=== PATIENT | male | born 1990 | race African-American/Black ===

== ENCOUNTER 2020-08-29 05:42 | Emergency (ER) | payer BC ==
[~2020-08-29] VITALS: Ht 190.5 cm; Wt 95.3 kg
[~2020-08-29 05:42] MED LIST: IBUPROFEN 800800 MG PO; ONDANSETRON HCL4 M2 PO; TRAMADOL 50 MG50 MG PO
[2020-08-29] MEDS ORDERED: DESCOVY 200-251 EACH PO (05:52)
[2020-08-29 06:27] LABS: ABSOLUTE EOSINOPHILS 0.1 thou/uL (0.0-0.7); ABSOLUTE MONOCYTES 0.2 thou/uL (0.0-1.2); ABSOLUTE NEUTROPHILS 1.2 thou/uL (1.6-8.1); EOSINOPHILS 3.6 %; HEMATOCRIT 46.3 % (42.0-52.0); HEMOGLOBIN 15.4 gm/dL (14.0-18.0); LYMPHOCYTES 55.9 %; MCH 29.8 pg (26.0-34.0); MCHC 33.4 g/dL (28.0-37.0); MCV 89.3 fL (80.0-100.0); MONOCYTES 5.5 %; MPV 9.4 fl. (7.2-11.1); NUCLEATED RBCS 0 /100WBC; PLATELET COUNT* 200 thou/uL (150-400); RBC 5.18 mil/uL (4.50-6.00); RDW-CV 13.7 % (10.5-14.5); WBC 3.5 thou/uL (4.0-11.0)
[2020-08-29 06:39] LABS: APTT 25.6 Seconds (25.0-31.3); PROTIME 10.4 Seconds (9.20-11.50)
[2020-08-29 06:42] LABS: CALCIUM 9.5 mg/dL (8.5-10.1); CREATININE 1.1 mg/dL (0.6-1.3)
[2020-08-29 06:47] LABS: ALBUMIN 3.5 g/dL (3.4-5.0); TOTAL BILIRUBIN 0.5 mg/dL (<0.1-1.0); TOTAL PROTEIN 7.5 g/dL (6.4-8.2)
[2020-08-29 07:59] VITALS: BP 114/64
--- NOTE | 2020-08-29 10:17 | EKG ---
[place] [address] ELECTROCARDIOGRAM REPORT Name: AKOSUA ALTAMIRANO Room: [facility]#: [id number] Admission: 08/29/20 Attend Phys: Discharge: 08/29/20 Date of : [birth year] Date of Service: 08/29/20628 Report #: [id number] THIS REPORT FOR: //name// [facility] ED Test Date: 2020-08-29 Test Time: 06:29:52 Pat Name: AKOSUA ALTAMIRANO Department: Room: Gender: A Operator: : 1990 Requested By: Yesy Schultz Order Number: [id number] MD: Mc Albert Measurements Intervals [place] Rate: 71 P: 53 IN: 155 QRS: 56 QRSD: 78 T: 36 QT: 349 QTc: 380 Interpretive Statements Sinus rhythm ST elev, probable normal early repol pattern No previous ECG available for comparison Electronically Signed On 08-29-2020 10:17:24 DELI MANAGER by Mc Albert [email or web address] <ELECTRONICALLY SIGNED> By: Mc Albert MD, [facility] 08/29/20 1017 8 8 Mc Albert MD, FACC /EPI
== END 2020-08-29 07:59 | disposition home or self-care (01) ==
LOC: M.ERS 05:42
PROVIDERS: Personal Emergency Response Attendant
DX: S06.0X0A Concussion without loss of consciousness, initial encounter (principal); Z79.899 Other long term (current) drug therapy; Z88.5 Allergy status to narcotic agent; W01.198A Fall on same level from slipping, tripping and stumbling with subsequent striking against other object, initial encounter; Y93.89 Activity, other specified; Y92.89 Other specified places as the place of occurrence of the external cause; Y99.8 Other external cause status

== ENCOUNTER 2020-10-10 13:26 | Emergency (ER) | payer OTHER, BC ==
[~2020-10-10] VITALS: Ht 188 cm; Wt 86.6 kg
[~2020-10-10 13:26] MED LIST changes: +DESCOVY 200-251 EACH PO
[2020-10-10] MEDS ORDERED: ZANAFLEX4 MG PO (15:49)
[2020-10-10] MEDS ORDERED: NAPROSYN500 MG PO (15:49)
[2020-10-10 15:59] VITALS: BP 130/80
== END 2020-10-10 16:00 | disposition home or self-care (01) ==
LOC: M.ERS 13:26
DX: S16.1XXA Strain of muscle, fascia and tendon at neck level, initial encounter (principal); S80.01XA Contusion of right knee, initial encounter; S40.212A Abrasion of left shoulder, initial encounter; Z88.5 Allergy status to narcotic agent; Z88.1 Allergy status to other antibiotic agents; Z90.49 Acquired absence of other specified parts of digestive tract; X58.XXXA Exposure to other specified factors, initial encounter; Y93.89 Activity, other specified; Y92.89 Other specified places as the place of occurrence of the external cause; Y99.8 Other external cause status